=== PATIENT | female | born 2000 | race Caucasian/White ===

== ENCOUNTER → 2021-12-19 | Outpatient (CLI) | payer BC ==
[2021-12-19 19:03] LABS: CLUE CELLS NOT OBSERVED (Not Observd)
== END ==
LOC: LAB 18:21
PROVIDERS: Nurse Practitioner Family
DX: Z20.2 Contact with and (suspected) exposure to infections with a predominantly sexual mode of transmission (principal)
CPT/HCPCS: Q0111